=== PATIENT | female | born 1995 ===

== ENCOUNTER 2025-10-07 20:44 | Outpatient (REF) | payer OTHER, SELFPAY ==
[2025-10-07 21:10] LABS: Anion Gap 6.6 mmol/L (3-11); BUN 19 mg/dL (9-23); CO2 26.4 mmol/L (20.0-31.0); Calcium 9.5 mg/dL (8.3-10.6); Chloride 107 mmol/L (98-107); Cholesterol 253 mg/dL (<200); Glucose 84 mg/dL (74-106); HDL Cholesterol 55 mg/dL (>40); Potassium 4.0 mmol/L (3.5-5.1); Sodium 140 mmol/L (136-145)
== END 2025-10-07 20:45 | disposition home or self-care (01) ==
LOC: NCHCN 20:44
PROVIDERS: Visit Provider Family Medicine
DX: Z13.220 Encounter for screening for lipoid disorders (principal); Z13.1 Encounter for screening for diabetes mellitus
CPT/HCPCS: 80048; 80061